=== PATIENT | male | born 2005 | race African-American/Black ===

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

== ENCOUNTER 2023-01-02 18:47 | Emergency (ER) | payer OTHER, BC ==
[2023-01-02 19:02] LABS: #Eosinphils 0.3 thou/uL (0.0-0.7); #Monocytes 0.9 thou/uL (0.11-0.59); #Neutrophils 9.4 thou/uL (1.40-6.50); %Basophils 0.2 % (0.0-1.0); %Eosinophils 2.4 % (0.0-10.0); %Lymphocytes 18.3 % (28.0-48.0); %Monocytes 7.1 % (0.0-4.0); %Neutrophils 71.7 % (31.0-61.0); Hemoglobin 13.3 g/dL (14.0-18.0); Mean Corpuscular HGB CONC 30.5 g/dL (32.0-36.0); Mean Corpuscular Hemoglobin 27.5 pg (25.0-35.0); Mean Corpuscular Volume 90.3 fl (78.0-98.0); Mean Platelet Volume 11.4 fL (7.4-10.4); Platelet Count 168 10x3/uL (130-400); RBC Distribution Width 11.6 % (11.5-14.5); Red Blood Cell (RBC) Count 4.83 mill/uL (4.00-5.20); White Blood Cell (WBC) Count 13.2 10x3/uL (4.8-10.8)
[2023-01-02 19:24] LABS: ALT (SGPT) 23 U/L (8-55); AST (SGOT) 21 U/L (10-45); Albumin 4.1 g/dL (3.5-5.0); Alkaline Phosphatase 64 U/L (50-130); Anion Gap 14 mmol/L (10-20); BUN (Urea Nitrogen) 11 mg/dL (8.4-21.0); Bilirubin, Total 0.7 mg/dL (0.2-1.2); Calc. Creatinine Clearance 0 mL/min (70-130); Carbon Dioxide 20 mmol/L (22-29); Chloride 107 mmol/L (98-107); Estimated GFR 129; Globulin 2.4 g/dL (2.4-3.5); Glucose 130 mg/dL (70-105); INR-International Normal Ratio 1.1; Potassium 3.1 mmol/L (3.5-5.1); Protein, Total 6.5 g/dL (6.0-8.3); Prothrombin Time 14.5 sec (12.0-14.7); Sodium 138 mmol/L (136-145)
[2023-01-02] MEDS ORDERED: Potassium Chloride 20 MEQ TAB ONE (19:41)
[2023-01-02] MEDS ORDERED: Boostrix 0.5 ML (Tdap) VIAL (>/=7 yrs of age) ONE (19:41)
[2023-01-02] MEDS ORDERED: fentaNYL 50 mcg/mL 1 mL Vial ONE (19:43)
[2023-01-02] MEDS ORDERED: Ketorolac Tromethamine 30 MG/ML VIAL ONE (19:43)
[2023-01-02] MEDS ORDERED: Bacitracin 1 PK ONE (22:38)
== END 2023-01-02 21:37 | disposition home or self-care (01) ==
LOC: ERS 18:47
DX: S01.112A Laceration without foreign body of left eyelid and periocular area, initial encounter (principal); S06.0XAA Concussion with loss of consciousness status unknown, initial encounter; E87.6 Hypokalemia; V89.2XXA Person injured in unspecified motor-vehicle accident, traffic, initial encounter
CPT/HCPCS: 12013; 36415; 70450; 71045; 72125; 80053; 85025; 85610; 85730; 86850; 86900; 86901; 90471; 90715; 93005; 94760; 96374; 96375; G0390; J1885; J3010